=== PATIENT | male | born 1950 | race Caucasian/White ===

== ENCOUNTER → 2017-03-04 | Outpatient (CLI) | payer BC ==
[~2017-03-04] MED LIST: ACETAMINOPHEN PO; DICLOFENAC PO; LOTREL 10/20 MG1 CAP PO; PRAVACHOL PO; ZETIA PO
--- NOTE | ~2017-03-04 | ST ---
Unit #: [id number] #: [id number] Patient: LYDIA ASH [id number] [address] [address] [id number] O MR#: [id number] NAME: LYDIA ASH. : 1950 SEX: M STUDY DATE/TIME: 03/04/2017 UNIT: [facility] ROOM: STUDY DESCRIPTION: Cardiac stress test. Attending Physician: Kiran Rodgers M.D. Referring Physician: Kiran Rodgers M.D. Primary Care Physician: Kiran Rodgers M.D. CARDIOLOGY REPORT EXAM Cardiac stress test. Results included in Cardiolite imaging report. Dictated by... Nawaf John M.D. PJR/gz TD: 03/05/2017 07:43 JOB #: [id number] CARDIOLOGY REPORT Page 1 of 1 X Nawaf John MD CARDIOLOGY REPORT
== END | disposition home or self-care (01) ==
LOC: CNUC 08:03
DX: I25.10 Atherosclerotic heart disease of native coronary artery without angina pectoris (principal); I25.9 Chronic ischemic heart disease, unspecified
CPT/HCPCS: 78452; 93017; A9500; J2785

== ENCOUNTER → 2017-03-30 | Outpatient (CLI) | payer BC ==
--- NOTE | ~2017-03-30 | CR63 ---
[facility] A Service of [facility] & [facility] RADIOLOGY TEXT RESULTS PATIENT: LYDIA ASH LOCATION: [facility] : 54 UNIT #: [id number] AGE: [address]: Gabriele Chand MD SEX: M ORDER DR: [id number] [facility] [address] [facility] [place], [place] [address] [id number] O MR#: [id number] Acc #: [id number] NAME: LYDIA ASH : 1950 SEX: M STUDY DATE/TIME: 03/30/2017 14:50 UNIT: [facility] ROOM: STUDY DESCRIPTION: CR Chest 2 View Attending Physician: Gabriele Chand M.D. Referring Physician: Gabriele Chand M.D. Ordering Physician: Gabriele Chand M.D. Primary Care Physician: Kiran Rodgers M.D. MEDICAL IMAGING REPORT This report is preliminary unless electronic signature is present EXAM Chest x-ray, 03/30 HISTORY Preoperative exam for knee surgery for knee replacement. The patient has a history of hypertension. Former smoker. FINDINGS PA and lateral examination of the chest upright shows a good expansion of the parenchyma with a normal distribution of the pulmonary vascularity. There is no indication of congestion, effusion, infiltrate, tumor, or nodular density. The pleural reflections and diaphragmatic contours are normal. The cardiac silhouette and mediastinal anatomy is within normal limits. IMPRESSION Normal chest. Dictated by... Ollie Verde Jr., M.D. THIS IS AN ELECTRONICALLY VERIFIED REPORT Ollie Verde Jr., M.D. at 04/01/2017 6:06 AM LYDIA/esther TD: 03/31/2017 10:40 JOB #: [id number] MEDICAL IMAGING REPORT Page 1 of 1 COPY
[2017-03-30 14:48] LABS: HEMATOCRIT 40.8 % (38.0-50.0); HEMOGLOBIN 13.1 gm/dL (13.0-16.0); MEAN CELL VOLUME 77.6 FL (83-96); MEAN CORPUSCULAR HEMOGLOBIN 24.9 PG (28-34); MEAN CORPUSCULAR HGB CONC 32.1 g/dL (30-36); RED BLOOD COUNT 5.25 X10e (3.90-5.60); RED CELL DISTRIBUTION WIDTH 14.6 % (11.0-15.5); WHITE BLOOD COUNT 7.6 X10e3 (4.0-10.5)
[2017-03-30 14:51] LABS: URINE APPEARANCE CLEAR; URINE BILIRUBIN NEG (NEG); URINE BLOOD NEG (NEG); URINE COLOR YELLOW; URINE GLUCOSE NEG (NEG); URINE KETONE NEG (NEG); URINE LEUKOCYTE ESTERASE NEG (NEG); URINE NITRATE NEG (NEG); URINE PROTEIN NEG (NEG)
[2017-03-30 14:54] LABS: CULTURE INDICATED? NO; URINE SOURCE CLEAN CATCH
[2017-03-30 15:18] LABS: ALBUMIN SERUM 4.2 g/dL (3.5-5.0); BILIRUBIN,TOTAL 1.3 mg/dL (0.2-2.0); BUN/CREATININE RATIO 19.16; CALCIUM SERUM 8.9 mg/dL (8.4-10.2); CREATININE SERUM 1.2 mg/dL (0.6-1.4); GLOM FILT RATE Estimated 63.1 mL/min (>60); PROTEIN TOTAL SERUM 6.8 g/dL (6.0-8.3)
[2017-03-30 15:46] LABS: PROTHROMBIN TIME (PATIENT) 10.9 SECONDS (9.6-11.5)
== END | disposition home or self-care (01) ==
LOC: CLAB 14:15
PROVIDERS: Orthopaedic Surgery
DX: Z01.818 Encounter for other preprocedural examination (principal); M17.12 Unilateral primary osteoarthritis, left knee; I10 Essential (primary) hypertension; Z98.890 Other specified postprocedural states
CPT/HCPCS: 36415; 71020; 80053; 81003; 85027; 85610